=== PATIENT | male | born 1970 | race Two or more races ===

== ENCOUNTER 2022-03-02 20:53 | Emergency (ER) | payer OTHER ==
[~2022-03-02] VITALS: Ht 182.9 cm; Wt 90.9 kg
[2022-03-02 21:07] VITALS: BP 150/80
== END 2022-03-02 22:51 | disposition left against medical advice (07) ==
LOC: ER 20:53
DX: F41.9 Anxiety disorder, unspecified (principal); R94.31 Abnormal electrocardiogram [ECG] [EKG]
CPT/HCPCS: 93005